=== PATIENT | female | born 1965 | race Caucasian/White ===

== ENCOUNTER 2016-10-28 17:51 | Emergency (ER) | payer OTHER ==
[~2016-10-28] VITALS: Ht 165.1 cm; Wt 70.8 kg
--- NOTE | 2016-10-28 18:27 | ED UPPER/LOWER EXTREMITY COMPL ---
History of Present Illness General Chief Complaint: Foot or Ankle Injury Stated Complaint: TWISTED RIGHT ANKLE Source: patient Exam Limitations: no limitations Vital Signs & Intake/Output Vital Signs & Intake/Output Vital Signs Date Time Temp Pulse Resp B/P Pulse O2 O2 Flow FiO2 Ox Delivery Rate 10/28 1836 98.0 76 18 168/96 98 Room Air 10/28 1757 97.0 84 18 179/110 99 Room Air ED Intake and Output 10/29 0000 10/28 1200 Intake Total Output Total Balance Patient 156 lb Weight Allergies Coded Allergies: No Known Allergies (10/28/16) Reconcile Medications Meloxicam (Mobic) 15 MG TABLET 1 TAB PO DAILY PRN PAIN Triage Note: C/O PAIN IN R ANKLE X 2 WEEKS AFTER TWISTING IT, INJURED R ANKLE AGAIN WHILE WALKING DONW STEPS. Triage Nurses Notes Reviewed? yes Onset: Abrupt Duration: constant Timing: recent history Severity: severe Severity Numbers: 7 No Modifying Factors: none HPI: Patient is a 51-year-old female who presents emergency and that approximately 2 weeks ago she twisted her right ankle resulting in right lateral ankle pain patient was taking [id number] NSAIDs for her symptoms however last night patient was walking down steps and re-twisted her right ankle resulting in worsening pain and swelling to the right lateral ankle region. Patient has been walking with a limp. Patient has been taking Motrin with no relief of symptoms. Denies any foot pain or knee pain. (MANJINDER JAMES) Past History Travel History Traveled to [place] past 21 day No Medical History Any Pertinent Medical History? see below for history Cardiovascular: hypertension Surgical History Surgical History: non-contributory Psychosocial History What is your primary language Kazakh Tobacco Use: Current Daily Use Daily Tobacco Use Amount/Type: =< 4 Cigarettes daily ETOH Use: occasional use Family History Hx Contributory? No (MANJINDER JAMES) Review of Systems Review of Systems Constitutional: Reports: no symptoms. EENTM: Reports: no symptoms. Respiratory: Reports: no symptoms. Cardiovascular: Reports: no symptoms. Gastrointestinal/Abdominal: Reports: no symptoms. Genitourinary: Reports: no symptoms. Musculoskeletal: Reports: see HPI, joint pain. Skin: Reports: no symptoms. Neurological/Psychological: Reports: no symptoms. Hematologic/Endocrine: Reports: no symptoms. Immunological: Reports: no symptoms. All Other Systems: Reviewed and Negative (MANJINDER JAMES) Physical Exam Physical Exam General Appearance: no apparent distress, comfortable Neurologic/Tendon: normal sensation, normal motor functions, normal tendon functions, responds to pain, no evidence tendon injury Comments: Well-developed well-nourished no apparent distress. HEENT: Atraumatic, extraocular motion intact Neck: Supple, no lymphadenopathy Back: Nontender Respiratory: No respiratory distress Extremities: Right knee nontender full active range of motion Right ankle Noted lateral malleoli point tenderness and swelling decreased active range of motion noted with plantar flexion and dorsiflexion Right foot normal inspection nontender to pulse +2 Right lower extremity dermatomes intact Neuro: Alert and oriented x3 Psych: Mood affect normal, normal memory normal judgment. (MANJINDER JAMES) Progress Differential Diagnosis: arterial insufficiency, compartment syndrome, contusion, dislocation, DVT, fracture, gout, septic arthritis, sprain, tendon injury Plan of Care: Orders Procedure Date/time Status Durable Medical Equipment 10/29 1851 Active Air cast stirrup and Enrique wrap was applied by me. Post neurovascular was intact. No osseous injury noted on x-rays. Patient was strongly advised to follow up with orthopedic doctor (MANJINDER JAMES) Diagnostic Imaging: Viewed by Me: Radiology Read. Radiology Impression: no fracture Comments: PATIENT: KETAN REYNOSO PRESENT AGE: 51 PATIENT ACCOUNT NO: [id number] : 63 LOCATION: [facility] ORDERING PHYSICIAN: MANJINDER HORTON SERVICE DATE: 10/28/16 EXAM TYPE: RAD - XRY-ANKLE 3 OR MORE VIEWS R EXAMINATION: XR ANKLE, RIGHT CLINICAL INFORMATION: Fall down stairs twisted right ankle complaining of pain and swelling COMPARISON: None TECHNIQUE: AP, lateral, and mortise views of the right ankle. FINDINGS: The bones and soft tissues are normal. No fracture. Alignment is anatomic. Joint spaces are maintained. No joint effusion. IMPRESSION: Normal right ankle. DICTATED BY: ANTONIO ZHAO MD DATE/TIME DICTATED:10/28/161835 (MANJINDER JAMES) Departure Departure Disposition: HOME OR SELF CARE Condition: Stable Clinical Impression Primary Impression: Right ankle sprain Referrals: ELAN ZENG,MAXI (PCP/Family) PARVIN MCCAULEY MD Additional Instructions: As discussed begin icing the area 20 minutes every 2 hours Begin elevating the foot for swelling, begin using the Enrique wrap for swelling begin using the Aircast for support and stability. Begin using the crutches until YOU CAN walk without pain. Begin the prescription meloxicam for pain and inflammation PRESCRIPTIONS waiting a [facility] pharmacy. If no better in one week follow-up with orthopedic Dr. Mccauley. If symptoms worsen return to emergency room Departure Forms: Customer Survey General Discharge Information Prescriptions: Current Visit Scripts Meloxicam (Mobic) 1 TAB PO DAILY PRN PAIN #15 TAB (MANJINDER JAMES) PA/PAYROLL ADMINISTRATOR Co-Sign Statement Statement: ED Attending supervision documentation- [] I saw and evaluated the patient. I have also reviewed all the pertinent lab results and diagnostic results. I agree with the findings and the plan of care as documented in the PA's/PAYROLL ADMINISTRATOR's documentation. [x] I have reviewed the ED Record and agree with the PA's/PAYROLL ADMINISTRATOR's documentation. [] Additions or exceptions (if any) to the PAs/PAYROLL ADMINISTRATOR's note and plan are summarized below: [] (MAXI LANE DO
[2016-10-28 18:36] VITALS: BP 168/96
--- NOTE | 2016-10-28 18:40 | RADIOLOGY REPORT ---
EXAMINATION: XR ANKLE, RIGHT CLINICAL INFORMATION: Fall down stairs twisted right ankle complaining of pain and swelling COMPARISON: None TECHNIQUE: AP, lateral, and mortise views of the right ankle. FINDINGS: The bones and soft tissues are normal. No fracture. Alignment is anatomic. Joint spaces are maintained. No joint effusion. IMPRESSION: Normal right ankle.
[2016-10-28] MEDS ORDERED: MOBIC15 M1 PO (18:56)
== END 2016-10-28 19:09 ==
LOC: ERH 17:51
DX: S93.401A Sprain of unspecified ligament of right ankle, initial encounter (principal); X58.XXXA Exposure to other specified factors, initial encounter; Y92.9 Unspecified place or not applicable; Y93.01 Activity, walking, marching and hiking
CPT/HCPCS: 73610-RT